=== PATIENT | male | born 1960 | race African-American/Black ===

== ENCOUNTER 2018-01-17 14:16 | Inpatient (IN) | payer OTHER ==
[2018-01-17 15:51] VITALS: BMI 22.8
--- NOTE | 2018-01-17 16:50 | HP ---
CIWA Score - CIWA Score Nausea/Vomitin-Mild Nausea/No Vomiting Muscle Tremors: 3 (Mild visible tremors of hands) Anxiety: 1-Mildly Anxious Agitation: 4-Moderately Restless Paroxysmal Sweats: 3 (Facial sweatness) Orientation: 0-Oriented Tacttile Disturbances: 0-None Auditory Disturbances: 0-None Visual Disturbances: 0-None Headache: 0-None Present CIWA-Ar Total Score: 12 Admission ROS S - HPI Chief Complaint: Here for alcohol withdrawal. Allergies/Adverse Reactions: Allergies Allergy/AdvReac Type Severity Reaction Status Date / Time No Known Drug Allergies Allergy Verified 01/09/15 20:08 VACCINATIONS Allergy Uncoded 01/09/15 16:19 History of Present Illness: Here for alcohol withdrawal. Alcohol use began at age 11. Marijuana use began at age 12. Nicotine use began at age 14. Heroin use began at age 40. Denies hx seizures, blackouts, overdose. Longest length of sobriety in community is 6 months. Hx opiate use disorder. Currently on [facility] MMTP/OTP ([phone]) since 2014. Dose is 60 mg Methadone PO Daily. 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 Exam Limitations: No Limitations - Ebola screening Have you traveled outside of the country in the last 21 days: No Have you had contact with anyone from an Ebola affected area: No Have you been sick,other than usual withdrawal symptoms: No Do you have a fever: No - Review of Systems Constitutional: Chills, Loss of Appetite EENT: reports: Blurred Vision (Needs glasses), Dental Problems (Missing/ chipped. Chews and swallows ok.) Respiratory: reports: No Symptoms reported Cardiac: reports: No Symptoms Reported GI: reports: Blood Streaked Bowels (Hx hemorrhoids.), Nausea : reports: Frequency (2-3x/night nocturia) Musculoskeletal: reports: No Symptoms Reported Integumentary: reports: No Symptoms Reported Neuro: reports: Tremors (r/t withdrawal) Endocrine: reports: No Symptoms Reported Hematology: reports: No Symptoms Reported Psychiatric: reports: Judgement Intact, Mood/Affect Appropiate, Orientated x3, Agitated (Restless), Anxious Patient History - Patient Medical History Hx Anemia: No Hx Asthma: No Hx Chronic Obstructive Pulmonary Disease (COPD): No Hx Cancer: No Hx Cardiac Disorders: No Hx Congestive Heart Failure: No Hx Hypertension: No Hx Hypercholesterolemia: No Hx Pacemaker: No HX Cerebrovascular Accident: No Hx Seizures: No (h/o blackouts - 3 years ago) Hx Dementia: No Hx Diabetes: No Hx Gastrointestinal Disorders: Yes (h/o gastritis - resolved years ago) Hx Liver Disease: No Hx Genitourinary Disorders: No Hx Sexually Transmitted Disorders: No Hx Renal Disease (ESRD): No Hx Thyroid Disease: No Hx Human Immunodeficiency Virus (HIV): No (2017 - ) Hx Hepatitis C: No Hx Depression: No Hx Suicide Attempt: No Hx Bipolar Disorder: No Hx Schizophrenia: No - Patient Surgical History Past Surgical History: Yes Hx Neurologic Surgery: No Hx Cataract Extraction: No Hx Cardiac Surgery: No Hx Lung Surgery: No Hx Breast Surgery: No Hx Breast Biopsy: No Hx Abdominal Surgery: Yes (umbilical hernia repair 1964) Hx Appendectomy: No Hx Cholecystectomy: No Hx Genitourinary Surgery: No Hx Section: No Hx Orthopedic Surgery: No Anesthesia Reaction: No - PPD History Previous Implant?: Yes Implanted On Prior [facility] Admission?: Yes Date: 01/09/15 PPD to be Administered?: Yes - Smoking Cessation Smoking history: Current every day smoker Have you smoked in the past 12 months: Yes Aproximately how many cigarettes per day: 10 Cigars Per Day: 0 Hx Chewing Tobacco Use: No Initiated information on smoking cessation: Yes 'Breaking Loose' booklet given: 01/17/18 - Substance & Tx. History Hx Alcohol Use: Yes Hx Substance Use: Yes Substance Use Type: Alcohol, Heroin, Marijuana Hx Substance Use Treatment: Yes (detox, Currently in a MMTP) - Substances Abused Alcohol Route: Oral Frequency: Daily Amount used: 1/2 pint Age of first use: 11 Date of Last Use: 01/17/18 Marijuana/Hashish Route: Smoking Frequency: Daily Age of first use: 12 Date of Last Use: 01/17/18 Heroin Route: Inhalation Frequency: 1-2 times per week Amount used: 1 bag Age of first use: 40 Date of Last Use: 01/11/18 Marijuana Route: Smoking Frequency: Daily Amount used: $10 Age of first use: 13 Date of Last Use: 01/17/18 Family Disease History - Family Disease History Family Disease History: Diabetes: Mother, Other: Father (alcoholism ) Admission Physical Exam BHS - Vital Signs Vital Signs: Vital Signs - 24 hr 01/17/18 15:49 Temperature 98.3 F Pulse Rate 86 Respiratory 20 Rate Blood Pressure 141/91 - Physical General Appearance: Yes: Mild Distress, Tremorous, Sweating, Anxious HEENTM: Yes: EOMI, Hearing grossly Normal, Normal Voice, CHRISTIANNE, Pharynx Normal Respiratory: Yes: Lungs Clear, Normal Breath Sounds, No Respiratory Distress Neck: Yes: No masses,lesions,Nodules, Supple Breast: Yes: Breast Exam Deferred Cardiology: Yes: Regular Rhythm, Regular Rate, S1, S2 Abdominal: Yes: Non Tender, Flat, Soft, Increased Bowel Sounds Genitourinary: Yes: Within Normal Limits Back: Yes: Normal Inspection Musculoskeletal: Yes: full range of Motion, Gait Steady Extremities: Yes: Normal Capillary Refill, Non-Tender, Tremors (MIld tremors of hands w/ arms elevated) 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 intact, Fully Oriented, Alert, Motor Strength 5/5, Normal Mood/Affect Integumentary: Yes: Normal Color, Dry, Warm Lymphatic: Yes: Within Normal Limits - Diagnostic (1) Methadone maintenance therapy patient Current Visit: Yes Status: Chronic (2) Alcohol dependence with uncomplicated withdrawal Current Visit: Yes Status: Acute (3) Nicotine dependence Current Visit: Yes Status: Chronic Qualifiers: Nicotine product type: cigarettes Substance use status: uncomplicated Qualified Code(s): F17.210 - Nicotine dependence, cigarettes, uncomplicated (4) Marijuana dependence Current Visit: Yes Status: Chronic (5) Poor dentition Current Visit: Yes Status: Chronic (6) Frequency of urination Current Visit: Yes Status: Chronic Cleared for Admission [facility] - Detox or Rehab [facility] Level of Care: Medically Managed Detox Regimen/Protocol: Librium [facility] Breath Alcohol Content Breath Alcohol Content: 0.044 Urine Drug Screen - Results Drug Screen Negative: No Urine Drug Screen Results: THC-Marijuana, OPI-Opiates, MTD-Methadone, FEN- Fentanyl
[2018-01-17] MEDS ORDERED: MAG HYDROX/AL HYDROX/SIMETH 30 ML UNIT-DOSE CUP PO PRN (17:16)
[2018-01-17] MEDS ORDERED: P-EPHED 60MG/TRIPROLIDI 2.5MG TABLET PO PRN (17:16)
[2018-01-17] MEDS ORDERED: MAGNESIUM HYDROX 2400MG/30ML ORAL SUSPENSION 30 ML CUP PO PRN (17:16)
[2018-01-17] MEDS ORDERED: guaiFENesin/D-METHORPHAN HB 10 ML UNIT-DOSE CUPS PO PRN (17:16)
[2018-01-17] MEDS ORDERED: ACETAMINOPHEN 325 MG TABLET (FP) PO PRN (17:16)
[2018-01-17] MEDS ORDERED: IBUPROFEN 400 MG TABLET (FP) PO PRN (17:16)
[2018-01-17] MEDS ORDERED: LOPERAMIDE HCL 2 MG CAPSULE PO PRN (17:16)
[2018-01-17] MEDS ORDERED: MAGNESIUM CITRATE 300 ML BOTTLE PO PRN (17:16)
[2018-01-17] MEDS ORDERED: MENTHOL/PHENOL 1 EACH UD MM PRN (17:16)
[2018-01-17] MEDS ORDERED: chlordiazePOXIDE HCL 25 MG CAPSULE PO PRN (17:16)
[2018-01-17] MEDS ORDERED: BENZOCAINE 20 % GEL TUBE MM PRN ×2 (17:25→18:39)
[2018-01-17] MEDS ORDERED: chlordiazePOXIDE HCL 25 MG CAPSULE PO ONE (18:45)
[2018-01-17] MEDS: NICOTINE POLACRILEX 2 MG GUM BC PRN (19:42)
[2018-01-17] MEDS: chlordiazePOXIDE HCL 25 MG CAPSULE PO SCH (22:29)
[2018-01-17] MEDS: THIAMINE HCL 100 MG TABLET (FP) PO SCH (22:29)
[2018-01-17] MEDS: MELATONIN 5 MG TABLETS PO PRN (22:30)
[2018-01-18 00:29] LABS: URINE APPEARANCE CLEAR; URINE BILIRUBIN NEGATIVE (<2.0 mg/dL); URINE COLOR DKYELLOW; URINE GLUCOSE (UA) NEGATIVE (NEGATIVE); URINE KETONE NEGATIVE (NEGATIVE); URINE LEUK ESTERASE TRACE (NEGATIVE); URINE NITRITE NEGATIVE (NEGATIVE); URINE PROTEIN NEGATIVE (NEGATIVE); URINE UROBILINOGEN NEGATIVE mg/dL (0.2-1.0)
[2018-01-18 00:39] LABS: URINE BACTERIA RARE /hpf (NONE SEEN); URINE MUCUS RARE
[2018-01-18] MEDS: chlordiazePOXIDE HCL 25 MG CAPSULE PO SCH ×4 (05:30→22:41)
[2018-01-18] MEDS ORDERED: METHADONE HCL 10 MG TABLET PO SCH (09:00)
[2018-01-18] MEDS ORDERED: METHADONE HCL 10 MG TABLET ONE (09:11)
[2018-01-18] MEDS ORDERED: METHADONE HCL 40 MG DISPERSABLE TABLET ONE (09:11)
[2018-01-18] MEDS: METHADONE 40 MG, METHADONE 20 MG PO SCH (09:13)
[2018-01-18] MEDS ORDERED: BENZOCAINE/MENTH/CETYLPYRD CL 1 EACH LOZENGE MM PRN (09:57)
[2018-01-18] MEDS ORDERED: AZITHROMYCIN 250 MG TABLET PO ONE (09:58)
[2018-01-18] MEDS: NICOTINE 14 MG/24 HOURS TOPICAL PATCH TD SCH (10:39)
[2018-01-18] MEDS: PRENATAL VITAMINS W/ FOLIC ACID TABLET (FP) PO SCH (10:39)
--- NOTE | 2018-01-18 11:28 | EKG ---
Test Reason : Blood Pressure : / mmHG Vent. Rate : 069 BPM Atrial Rate : 069 BPM P-R Int : 232 ms QRS Dur : 090 ms QT Int : 420 ms P-R-T Axes : 055 062 062 degrees QTc Int : 450 ms SINUS RHYTHM WITH 1ST DEGREE A-V BLOCK OTHERWISE NORMAL ECG NO PREVIOUS ECGS AVAILABLE Confirmed by WENCESLAO MCLEOD, HUMA ([id number]) on 01/18/2018 11:28:37 AM Referred By: Confirmed By:HUMA BILLY MD
--- NOTE | 2018-01-18 14:04 | PN ---
[facility] CIWA - CIWA Score Nausea/Vomitin Muscle Tremors: 4-Moderate,w/Arms Extend Anxiety: 4-Mod. Anxious/Guarded Agitation: 4-Moderately Restless Paroxysmal Sweats: 3 Orientation: 0-Oriented Tacttile Disturbances: 0-None Auditory Disturbances: 0-None Visual Disturbances: 0-None Headache: 0-None Present CIWA-Ar Total Score: 17 BHS Progress Note (SOAP) Subjective: Tremor, chills, sweating, interrupted sleep; patient c/o sore throat since this morning in which it hurts to swallow. Patient stated he took oragel without any relief. Objective: 01/18/18 14:00 Last Vital Signs Temp Pulse Resp BP Pulse Ox 99.2 F 79 18 113/83 01/18/18 09:39 01/18/18 09:39 01/18/18 09:39 01/18/18 09:39 PE: Throat: mouth with moist mucous membrane, moderate pharyngeal erythema without any exudates Laboratory Tests 01/17/18 22:57 Urine Color Dkyellow Urine Appearance Clear Urine pH 5.0 Ur Specific [place] 1.020 Urine Protein Negative Urine Glucose (UA) Negative Urine Ketones Negative Urine Blood 2+ H Urine Nitrite Negative Urine Bilirubin Negative Urine Urobilinogen Negative Ur Leukocyte Esterase Trace Urine WBC (Auto) 1 Urine RBC (Auto) 1 Urine Bacteria Rare Urine Mucus Rare abnormal UA noted; CBC, CMP, RPR in progress Assessment: 01/18/18 14:02 Withdrawal symptoms Noted with abnormal UA and acute pharyngitis Plan: Continue detox Abnormal UA: encouraged PO water intake, repeat UA Acute pharyngitis: cepacol lozenges prn, Z Alessandro, encouraged robitussin dm prn, encouraged PO water intake
[2018-01-18 14:14] LABS: HEMATOCRIT 41.7 % (35.4-49); HEMOGLOBIN 13.3 GM/dL (11.7-16.9); MCH 28.9 pg (25.7-33.7); MCHC 31.9 g/dl (32.0-35.9); MEAN CELL VOLUME 90.6 fl (80-96); MEAN PLT VOLUME 9.1 fl (7.5-11.1); PLATELET COUNT 188 K/MM3 (134-434); RBC 4.61 M/mm3 (4.00-5.60); RDW 13.1 % (11.9-15.9); WHITE BLOOD COUNT 10.5 K/mm3 (4.0-10.0)
[2018-01-18 14:51] LABS: ALBUMIN 3.6 g/dl (3.4-5.0); ALK PHOS 80 U/L (45-117); ANION GAP 5 MMOL/L (8-16); BILIRUBIN,TOTAL 0.5 mg/dL (0.2-1); BLOOD UREA NITROGEN 11 mg/dL (7-18); CALCIUM 8.8 mg/dL (8.5-10.1); CHLORIDE 105 mmol/L (98-107); CO2 31 mmol/L (21-32); CREATININE 1.1 mg/dL (0.55-1.3); GLUCOSE,RANDOM 80 mg/dL (74-106); POTASSIUM 3.9 mmol/L (3.5-5.1); SGOT/AST 16 U/L (15-37); SGPT/ALT 18 U/L (13-61); SODIUM 141 mmol/L (136-145); TOT PROT 6.6 g/dl (6.4-8.2)
[2018-01-18] MEDS: NICOTINE POLACRILEX 2 MG GUM BC PRN (15:36)
[2018-01-18] MEDS: MELATONIN 5 MG TABLETS PO PRN (22:41)
[2018-01-18] MEDS: THIAMINE HCL 100 MG TABLET (FP) PO SCH (22:41)
[2018-01-19] MEDS ORDERED: METHADONE HCL 10 MG TABLET ONE (02:14)
[2018-01-19] MEDS ORDERED: METHADONE HCL 40 MG DISPERSABLE TABLET ONE (02:14)
[2018-01-19] MEDS: chlordiazePOXIDE HCL 25 MG CAPSULE PO SCH ×3 (05:30→17:30)
[2018-01-19] MEDS: METHADONE 40 MG, METHADONE 20 MG PO SCH (05:30)
[2018-01-19] MEDS: NICOTINE POLACRILEX 2 MG GUM BC PRN (05:32)
[2018-01-19] MEDS: AZITHROMYCIN 250 MG TABLET PO SCH (10:07)
[2018-01-19] MEDS: PRENATAL VITAMINS W/ FOLIC ACID TABLET (FP) PO SCH (10:07)
[2018-01-19] MEDS: NICOTINE 14 MG/24 HOURS TOPICAL PATCH TD SCH (10:07)
--- NOTE | 2018-01-19 11:49 | PN ---
[facility] CIWA - CIWA Score Nausea/Vomitin-Mild Nausea/No Vomiting Muscle Tremors: 3 Anxiety: 4-Mod. Anxious/Guarded Agitation: 3 Paroxysmal Sweats: 3 Orientation: 0-Oriented Tacttile Disturbances: 0-None Auditory Disturbances: 0-None Visual Disturbances: 0-None Headache: 0-None Present CIWA-Ar Total Score: 14 S Progress Note (SOAP) Subjective: Sweating, muscle cramps, interrupted sleep Objective: 01/19/18 11:50 Last Vital Signs Temp Pulse Resp BP Pulse Ox 98.4 F 83 18 114/74 01/19/18 09:05 01/19/18 09:05 01/19/18 09:05 01/19/18 09:05 Laboratory Tests 01/17/18 01/18/18 01/18/18 22:57 07:15 07:15 WBC 10.5 H RBC 4.61 Hgb 13.3 Hct 41.7 MCV 90.6 MCH 28.9 MCHC 31.9 L RDW 13.1 Plt Count 188 MPV 9.1 Sodium 141 Potassium 3.9 Chloride 105 Carbon Dioxide 31 Anion Gap 5 L BUN 11 Creatinine 1.1 Creat Clearance w eGFR > 60 Random Glucose 80 Calcium 8.8 Total Bilirubin 0.5 AST 16 ALT 18 Alkaline Phosphatase 80 Total Protein 6.6 Albumin 3.6 Urine Color Dkyellow Urine Appearance Clear Urine pH 5.0 Ur Specific [place] 1.020 Urine Protein Negative Urine Glucose (UA) Negative Urine Ketones Negative Urine Blood 2+ H Urine Nitrite Negative Urine Bilirubin Negative Urine Urobilinogen Negative Ur Leukocyte Esterase Trace Urine WBC (Auto) 1 Urine RBC (Auto) 1 Urine Bacteria Rare Urine Mucus Rare RPR Titer HIV 1&2 Antibody Screen HIV P24 Antigen 01/18/18 01/18/18 07:15 07:15 WBC RBC Hgb Hct MCV MCH MCHC RDW Plt Count MPV Sodium Potassium Chloride Carbon Dioxide Anion Gap BUN Creatinine Creat Clearance w eGFR Random Glucose Calcium Total Bilirubin AST ALT Alkaline Phosphatase Total Protein Albumin Urine Color Urine Appearance Urine pH Ur Specific [place] Urine Protein Urine Glucose (UA) Urine Ketones Urine Blood Urine Nitrite Urine Bilirubin Urine Urobilinogen Ur Leukocyte Esterase Urine WBC (Auto) Urine RBC (Auto) Urine Bacteria Urine Mucus RPR Titer Nonreactive HIV 1&2 Antibody Screen Negative HIV P24 Antigen Negative Labs reviewed: abnormal UA Assessment: 01/19/18 11:51 Withdrawal symptoms Abnormal UA noted Plan: Continue detox Abnormal UA: encouraged PO water intake, repeat UA
[2018-01-19 17:56] LABS: URINE APPEARANCE CLEAR; URINE BILIRUBIN NEGATIVE (<2.0 mg/dL); URINE COLOR STRAW; URINE GLUCOSE (UA) NEGATIVE (NEGATIVE); URINE KETONE NEGATIVE (NEGATIVE); URINE LEUK ESTERASE NEGATIVE (NEGATIVE); URINE NITRITE NEGATIVE (NEGATIVE); URINE PROTEIN NEGATIVE (NEGATIVE); URINE UROBILINOGEN NEGATIVE mg/dL (0.2-1.0)
[2018-01-19 18:14] LABS: URINE MUCUS RARE
[2018-01-19] MEDS: THIAMINE HCL 100 MG TABLET (FP) PO SCH (22:17)
[2018-01-19] MEDS: chlordiazePOXIDE 5 MG CAPSULE PO SCH (22:18)
[2018-01-19] MEDS: MELATONIN 5 MG TABLETS PO PRN (22:20)
[2018-01-19] MEDS: CYCLOBENZAPRINE HCL 5 MG TABLET PO PRN (22:20)
[2018-01-20] MEDS ORDERED: METHADONE HCL 10 MG TABLET ONE (04:43)
[2018-01-20] MEDS ORDERED: METHADONE HCL 40 MG DISPERSABLE TABLET ONE (04:43)
[2018-01-20] MEDS: METHADONE 40 MG, METHADONE 20 MG PO SCH (05:09)
[2018-01-20] MEDS: chlordiazePOXIDE 5 MG CAPSULE PO SCH ×3 (05:09→17:23)
[2018-01-20] MEDS: PRENATAL VITAMINS W/ FOLIC ACID TABLET (FP) PO SCH (10:08)
[2018-01-20] MEDS: AZITHROMYCIN 250 MG TABLET PO SCH (10:08)
[2018-01-20] MEDS: NICOTINE 14 MG/24 HOURS TOPICAL PATCH TD SCH (10:31)
--- NOTE | 2018-01-20 12:55 | PN ---
BHS Progress Note (SOAP) Subjective: Sweating, anxious Objective: 01/20/18 12:51 Last Vital Signs Temp Pulse Resp BP Pulse Ox 97.7 F 71 18 144/81 01/20/18 09:41 01/20/18 09:41 01/20/18 09:41 01/20/18 09:41 Laboratory Tests 01/17/18 01/18/18 01/18/18 22:57 07:15 07:15 WBC 10.5 H RBC 4.61 Hgb 13.3 Hct 41.7 MCV 90.6 MCH 28.9 MCHC 31.9 L RDW 13.1 Plt Count 188 MPV 9.1 Sodium 141 Potassium 3.9 Chloride 105 Carbon Dioxide 31 Anion Gap 5 L BUN 11 Creatinine 1.1 Creat Clearance w eGFR > 60 Random Glucose 80 Calcium 8.8 Total Bilirubin 0.5 AST 16 ALT 18 Alkaline Phosphatase 80 Total Protein 6.6 Albumin 3.6 Urine Color Dkyellow Urine Appearance Clear Urine pH 5.0 Ur Specific [place] 1.020 Urine Protein Negative Urine Glucose (UA) Negative Urine Ketones Negative Urine Blood 2+ H Urine Nitrite Negative Urine Bilirubin Negative Urine Urobilinogen Negative Ur Leukocyte Esterase Trace Urine WBC (Auto) 1 Urine RBC (Auto) 1 Urine Bacteria Rare Urine Mucus Rare RPR Titer HIV 1&2 Antibody Screen HIV P24 Antigen 01/18/18 01/18/18 01/19/18 07:15 07:15 15:11 WBC RBC Hgb Hct MCV MCH MCHC RDW Plt Count MPV Sodium Potassium Chloride Carbon Dioxide Anion Gap BUN Creatinine Creat Clearance w eGFR Random Glucose Calcium Total Bilirubin AST ALT Alkaline Phosphatase Total Protein Albumin Urine Color Straw Urine Appearance Clear Urine pH 6.0 Ur Specific [place] 1.005 L Urine Protein Negative Urine Glucose (UA) Negative Urine Ketones Negative Urine Blood 1+ H Urine Nitrite Negative Urine Bilirubin Negative Urine Urobilinogen Negative Ur Leukocyte Esterase Negative Urine WBC (Auto) None Urine RBC (Auto) 2 Urine Bacteria Urine Mucus Rare RPR Titer Nonreactive HIV 1&2 Antibody Screen Negative HIV P24 Antigen Negative Labs reviewed: microscopic hematuria (improving from 2+ to 1+), encouraged to drink more water and to see his PCP within 1 week for further evaluation Assessment: 01/20/18 12:55 Withdrawal symptoms Noted with elevated blood pressure and microscopic hematuria Plan: Continue detox Patient is for discharge tomorrow at 8am Elevated blood pressure: patient denies htn; most likely due to anxiety, clonidine 0.1mg q8hr prn Microscopic hematuria: encouraged to drink more water and to see PCP within 1 week for further evaluation
[2018-01-20] MEDS ORDERED: cloNIDine HCL 0.1 MG TABLET PO PRN (13:10)
[2018-01-20] MEDS: CYCLOBENZAPRINE HCL 5 MG TABLET PO PRN (17:25)
[2018-01-20] MEDS: NICOTINE POLACRILEX 2 MG GUM BC PRN (17:26)
[2018-01-20] MEDS: chlordiazePOXIDE HCL 10 MG CAPSULE PO SCH (22:19)
[2018-01-20] MEDS: THIAMINE HCL 100 MG TABLET (FP) PO SCH (22:19)
[2018-01-20] MEDS: MELATONIN 5 MG TABLETS PO PRN (22:19)
[2018-01-21] MEDS ORDERED: METHADONE HCL 40 MG DISPERSABLE TABLET ONE (04:18)
[2018-01-21] MEDS ORDERED: METHADONE HCL 10 MG TABLET ONE (04:18)
[2018-01-21] MEDS: chlordiazePOXIDE HCL 10 MG CAPSULE PO SCH (05:44)
[2018-01-21] MEDS: METHADONE 40 MG, METHADONE 20 MG PO SCH (05:44)
[2018-01-21 06:20] VITALS: BP 118/78; PULSE 77; TEMP 96.9
--- NOTE | 2018-01-21 09:15 | DS ---
[facility] Detox Discharge Summary Admission Date: 01/17/18 Discharge Date: 01/21/18 - History Present History: Alcohol Dependence, Opioid Dependence, MMTP Additional Comments: Patient medically stable. Follow up with primary care provider in 1 -2 weeks. Pertinent Past History: Vital Signs Temperature 96.9 F L 01/21/18 06:20 Pulse Rate 77 01/21/18 06:20 Respiratory Rate 16 01/21/18 06:20 Blood Pressure 118/78 01/21/18 06:20 O2 Sat by Pulse Oximetry (%) Laboratory Last Values WBC 10.5 K/mm3 (4.0-10.0) H 01/18/18 07:15 RBC 4.61 M/mm3 (4.00-5.60) 01/18/18 07:15 Hgb 13.3 GM/dL (11.7-16.9) 01/18/18 07:15 Hct 41.7 % (35.4-49) 01/18/18 07:15 MCV 90.6 fl (80-96) 01/18/18 07:15 MCH 28.9 pg (25.7-33.7) 01/18/18 07:15 MCHC 31.9 g/dl (32.0-35.9) L 01/18/18 07:15 RDW 13.1 % (11.9-15.9) 01/18/18 07:15 Plt Count 188 K/MM3 (134-434) 01/18/18 07:15 MPV 9.1 fl (7.5-11.1) 01/18/18 07:15 Sodium 141 mmol/L (136-145) 01/18/18 07:15 Potassium 3.9 mmol/L (3.5-5.1) 01/18/18 07:15 Chloride 105 mmol/L (98-107) 01/18/18 07:15 Carbon Dioxide 31 mmol/L (21-32) 01/18/18 07:15 Anion Gap 5 MMOL/L (8-16) L 01/18/18 07:15 BUN 11 mg/dL (7-18) 01/18/18 07:15 Creatinine 1.1 mg/dL (0.55-1.3) 01/18/18 07:15 Creat Clearance w eGFR > 60 (>60) 01/18/18 07:15 Random Glucose 80 mg/dL (74-106) 01/18/18 07:15 Calcium 8.8 mg/dL (8.5-10.1) 01/18/18 07:15 Total Bilirubin 0.5 mg/dL (0.2-1) 01/18/18 07:15 AST 16 U/L (15-37) 01/18/18 07:15 ALT 18 U/L (13-61) 01/18/18 07:15 Alkaline Phosphatase 80 U/L (45-117) 01/18/18 07:15 Total Protein 6.6 g/dl (6.4-8.2) 01/18/18 07:15 Albumin 3.6 g/dl (3.4-5.0) 01/18/18 07:15 Urine Color Straw 01/19/18 15:11 Urine Appearance Clear 01/19/18 15:11 Urine pH 6.0 (5.0-8.0) 01/19/18 15:11 Ur Specific [place] 1.005 (1.010-1.035) L 01/19/18 15:11 Urine Protein Negative (NEGATIVE) 01/19/18 15:11 Urine Glucose (UA) Negative (NEGATIVE) 01/19/18 15:11 Urine Ketones Negative (NEGATIVE) 01/19/18 15:11 Urine Blood 1+ (NEGATIVE) H 01/19/18 15:11 Urine Nitrite Negative (NEGATIVE) 01/19/18 15:11 Urine Bilirubin Negative (<2.0 mg/dL) 01/19/18 15:11 Urine Urobilinogen Negative mg/dL (0.2-1.0) 01/19/18 15:11 Ur Leukocyte Esterase Negative (NEGATIVE) 01/19/18 15:11 Urine WBC (Auto) None /hpf (3-5) 01/19/18 15:11 Urine RBC (Auto) 2 /hpf (0-3) 01/19/18 15:11 Urine Bacteria Rare /hpf (NONE SEEN) 01/17/18 22:57 Urine Mucus Rare 01/19/18 15:11 RPR Titer Nonreactive (NONREACTIVE) 01/18/18 07:15 HIV 1&2 Antibody Screen Negative 01/18/18 07:15 HIV P24 Antigen Negative 01/18/18 07:15 - Physical Exam Results Vital Signs: Vital Signs Temperature 96.9 F L 10/27/18 06:20 Pulse Rate 77 01/21/18 06:20 Respiratory Rate 16 01/21/18 06:20 Blood Pressure 118/78 01/21/18 06:20 O2 Sat by Pulse Oximetry (%) - Treatment Hospital Course: Detox Protocol Followed, Detoxed Safely, Responded well, Discharged Condition Good, Rehab Referral Accepted Patient has Accepted a Rehab Referral to: [facility] - Diagnosis (1) Alcohol dependence with uncomplicated withdrawal Status: Acute (2) Marijuana dependence Status: Chronic (3) Nicotine dependence Status: Chronic Qualifiers: Nicotine product type: cigarettes Substance use status: uncomplicated Qualified Code(s): F17.210 - Nicotine dependence, cigarettes, uncomplicated (4) Methadone maintenance therapy patient Status: Chronic - AMA Did Patient Leave Against Medical Advice: No
== END 2018-01-21 08:48 | disposition home or self-care (01) | DRG 773 ==
LOC: YASAS 14:16 → Y3N 18:14
PROC: HZ2ZZZZ Detoxification Services for Substance Abuse Treatment (ICD-10-PCS; principal; 2018-01-17)
DX: F10.230 Alcohol dependence with withdrawal, uncomplicated (principal); F12.20 Cannabis dependence, uncomplicated; F11.20 Opioid dependence, uncomplicated; F17.210 Nicotine dependence, cigarettes, uncomplicated; J02.9 Acute pharyngitis, unspecified; R35.0 Frequency of micturition; R31.29 Other microscopic hematuria; K08.9 Disorder of teeth and supporting structures, unspecified; R03.0 Elevated blood-pressure reading, without diagnosis of hypertension; Z87.19 Personal history of other diseases of the digestive system
CPT/HCPCS: 36415; 80053; 81003; 81015; 85027; 86593; 87389; 93005; 93010

== ENCOUNTER 2020-02-11 15:52 | Inpatient (IN) | payer OTHER ==
[2020-02-11 17:15] VITALS: BMI 22.4
[2020-02-11] MEDS ORDERED: MAGNESIUM HYDROX 2400MG/30ML ORAL SUSPENSION 30 ML CUP PO PRN (17:56)
[2020-02-11] MEDS ORDERED: MAGNESIUM CITRATE 300 ML BOTTLE PO PRN (17:56)
[2020-02-11] MEDS ORDERED: ONDANSETRON *ODT* 4 MG TABLET SL PRN (17:56)
[2020-02-11] MEDS ORDERED: NICOTINE POLACRILEX 2 MG GUM BUC PRN (17:56)
[2020-02-11] MEDS ORDERED: METHOCARBAMOL 500 MG TABLET PO PRN (17:56)
[2020-02-11] MEDS ORDERED: ACETAMINOPHEN 325 MG TABLET (FP) PO PRN ×2 (17:56)
[2020-02-11] MEDS ORDERED: MAG HYDROX/AL HYDROX/SIMETH 30 ML UNIT-DOSE CUP PO PRN (17:56)
[2020-02-11] MEDS ORDERED: IBUPROFEN 400 MG TABLET (FP) PO PRN (17:56)
[2020-02-11] MEDS ORDERED: MENTHOL/PHENOL 1 EACH UD MM PRN (17:56)
[2020-02-11] MEDS ORDERED: BISMUTH SUBSALICYLATE 524 MG/30 ML UD PO PRN (17:56)
[2020-02-11] MEDS ORDERED: chlordiazePOXIDE HCL 25 MG CAPSULE PO PRN (18:08)
[2020-02-11] MEDS ORDERED: chlordiazePOXIDE HCL 25 MG CAPSULE PO ONE (19:45)
[2020-02-11] MEDS: NICOTINE 7 MG/24 HOURS TOPICAL PATCH TD SCH (20:17)
[2020-02-11] MEDS: hydrOXYzine PAMOATE 25 MG CAPSULE (FP) PO SCH ×2 (20:17→22:06)
[2020-02-11] MEDS: MELATONIN 5 MG TABLETS PO SCH (22:06)
[2020-02-11] MEDS: chlordiazePOXIDE HCL 25 MG CAPSULE PO SCH (22:06)
[2020-02-11] MEDS: THIAMINE HCL 100 MG TABLET (FP) PO SCH (22:06)
[2020-02-12] MEDS: chlordiazePOXIDE HCL 25 MG CAPSULE PO SCH ×4 (05:36→22:20)
[2020-02-12] MEDS: hydrOXYzine PAMOATE 25 MG CAPSULE (FP) PO SCH ×5 (06:07→22:20)
[2020-02-12 09:00] LABS: HEMATOCRIT 40.8 % (35.4-49); HEMOGLOBIN 13.6 GM/dL (11.7-16.9); MCH 29.9 pg (25.7-33.7); MCHC 33.3 g/dl (32.0-35.9); MEAN CELL VOLUME 89.7 fl (80-96); MEAN PLT VOLUME 8.8 fl (7.5-11.1); PLATELET COUNT 197 K/MM3 (134-434); RBC 4.55 M/mm3 (4.00-5.60); RDW 12.5 % (11.9-15.9); WHITE BLOOD COUNT 11.9 K/mm3 (4.0-10.0)
[2020-02-12 09:09] LABS: CALCIUM 8.9 mg/dL (8.5-10.1)
[2020-02-12 09:10] LABS: ALBUMIN 3.7 g/dl (3.4-5.0); BLOOD UREA NITROGEN 13.6 mg/dL (7-18)
[2020-02-12 09:13] LABS: CREATININE 1.1 mg/dL (0.55-1.3)
[2020-02-12 09:14] LABS: BILIRUBIN,TOTAL 0.9 mg/dL (0.2-1)
[2020-02-12 09:15] LABS: TOT PROT 6.7 g/dl (6.4-8.2)
[2020-02-12 10:04] LABS: HIV INTERPRETATION NEGATIVE (NEGATIVE)
[2020-02-12] MEDS: PRENATAL VITAMINS W/ FOLIC ACID TABLET (FP) PO SCH (10:04)
[2020-02-12] MEDS: NICOTINE 7 MG/24 HOURS TOPICAL PATCH TD SCH (10:05)
[2020-02-12] MEDS ORDERED: METHADONE HCL 40 MG DISPERSABLE TABLET PO ONE (10:30)
[2020-02-12] MEDS: THIAMINE HCL 100 MG TABLET (FP) PO SCH (22:20)
[2020-02-12] MEDS: MELATONIN 5 MG TABLETS PO SCH (22:21)
[2020-02-13] MEDS: chlordiazePOXIDE HCL 25 MG CAPSULE PO SCH ×4 (06:22→22:17)
[2020-02-13] MEDS: hydrOXYzine PAMOATE 25 MG CAPSULE (FP) PO SCH ×5 (06:24→22:17)
[2020-02-13] MEDS: METHADONE HCL 40 MG DISPERSABLE TABLET PO SCH (06:24)
[2020-02-13] MEDS: PRENATAL VITAMINS W/ FOLIC ACID TABLET (FP) PO SCH (10:02)
[2020-02-13] MEDS: NICOTINE 7 MG/24 HOURS TOPICAL PATCH TD SCH (10:04)
[2020-02-13] MEDS: THIAMINE HCL 100 MG TABLET (FP) PO SCH (22:17)
[2020-02-13] MEDS: MELATONIN 5 MG TABLETS PO SCH (22:17)
[2020-02-14] MEDS ORDERED: chlordiazePOXIDE HCL 10 MG CAPSULE PO PRN
[2020-02-14] MEDS: chlordiazePOXIDE HCL 10 MG CAPSULE PO SCH ×4 (05:26→22:31)
[2020-02-14] MEDS: METHADONE HCL 40 MG DISPERSABLE TABLET PO SCH (05:26)
[2020-02-14] MEDS: hydrOXYzine PAMOATE 25 MG CAPSULE (FP) PO SCH ×5 (05:27→22:31)
[2020-02-14] MEDS: NICOTINE 7 MG/24 HOURS TOPICAL PATCH TD SCH (10:22)
[2020-02-14] MEDS: PRENATAL VITAMINS W/ FOLIC ACID TABLET (FP) PO SCH (10:22)
[2020-02-14] MEDS: THIAMINE HCL 100 MG TABLET (FP) PO SCH (22:31)
[2020-02-14] MEDS: MELATONIN 5 MG TABLETS PO SCH (22:32)
[2020-02-15] MEDS ORDERED: chlordiazePOXIDE HCL 10 MG CAPSULE PO SCH (05:00)
[2020-02-15] MEDS: hydrOXYzine PAMOATE 25 MG CAPSULE (FP) PO SCH ×2 (05:24→10:02)
[2020-02-15] MEDS: METHADONE HCL 40 MG DISPERSABLE TABLET PO SCH (05:24)
[2020-02-15 06:20] VITALS: TEMP 97.3
[2020-02-15 08:50] VITALS: BP 113/77; PULSE 100
[2020-02-15] MEDS: PRENATAL VITAMINS W/ FOLIC ACID TABLET (FP) PO SCH (10:02)
[2020-02-15] MEDS: NICOTINE 7 MG/24 HOURS TOPICAL PATCH TD SCH (10:02)
[2020-02-16] MEDS ORDERED: chlordiazePOXIDE HCL 10 MG CAPSULE PO ONE (05:00)
== END 2020-02-15 10:38 | disposition home or self-care (01) | DRG 773 ==
LOC: YASAS 15:52 → Y3N 19:31
PROVIDERS: ADMIT Allergy & Immunology; ATTEND Allergy & Immunology
PROC: HZ2ZZZZ Detoxification Services for Substance Abuse Treatment (ICD-10-PCS; principal; 2020-02-11)
DX: F10.230 Alcohol dependence with withdrawal, uncomplicated (principal); F11.20 Opioid dependence, uncomplicated; F12.20 Cannabis dependence, uncomplicated; F17.210 Nicotine dependence, cigarettes, uncomplicated; K08.89 Other specified disorders of teeth and supporting structures; M54.5 Low back pain; G89.29 Other chronic pain; R07.0 Pain in throat; R07.89 Other chest pain; H92.01 Otalgia, right ear; Z86.69 Personal history of other diseases of the nervous system and sense organs; Z87.19 Personal history of other diseases of the digestive system; Z88.7 Allergy status to serum and vaccine
CPT/HCPCS: 36415; 80053; 85027; 86780; 87389; 93005; 93010; C9803; U0003

== ENCOUNTER 2021-01-30 17:03 | Inpatient (IN) | payer OTHER ==
[2021-01-30 20:31] VITALS: BMI 22.6
[2021-01-30] MEDS ORDERED: NICOTINE POLACRILEX 2 MG GUM BUC PRN (22:06)
[2021-01-30] MEDS ORDERED: ACETAMINOPHEN 325 MG TABLET (FP) PO PRN (22:06)
[2021-01-30] MEDS ORDERED: MENTHOL/PHENOL 1 EACH UD MM PRN (22:06)
[2021-01-30] MEDS ORDERED: MAGNESIUM HYDROX 2400MG/30ML ORAL SUSPENSION 30 ML CUP PO PRN (22:06)
[2021-01-30] MEDS ORDERED: ONDANSETRON *ODT* 4 MG TABLET SL PRN (22:06)
[2021-01-30] MEDS ORDERED: MAGNESIUM CITRATE 300 ML BOTTLE PO PRN (22:06)
[2021-01-30] MEDS ORDERED: MAG HYDROX/AL HYDROX/SIMETH 30 ML UNIT-DOSE CUP PO PRN (22:06)
[2021-01-30] MEDS ORDERED: BISMUTH SUBSALICYLATE 524 MG/30 ML PO PRN (22:06)
[2021-01-30] MEDS ORDERED: methaDONE HCL 10 MG TABLET (FOR DETOX USE ONLY) PO ONE (22:11)
[2021-01-30] MEDS ORDERED: diazePAM 5 MG TABLET PO PRN (22:11)
[2021-01-31] MEDS: diazePAM 5 MG TABLET PO SCH ×5 (00:08→22:26)
[2021-01-31] MEDS: cloNIDine HCL 0.1 MG TABLET PO PRN ×2 (00:10→16:42)
[2021-01-31] MEDS: NICOTINE 10 MG CARTRIDGE (INHALER) IH PRN (06:06)
[2021-01-31] MEDS: METHOCARBAMOL 500 MG TABLET PO PRN ×3 (07:45→22:28)
[2021-01-31] MEDS ORDERED: methaDONE HCL 10 MG TABLET (FOR DETOX USE ONLY) ONE (09:50)
[2021-01-31] MEDS: PRENATAL VITAMINS W/ FOLIC ACID TABLET (FP) PO SCH (12:44)
[2021-01-31] MEDS: MELATONIN 5 MG TABLETS PO SCH (22:24)
[2021-01-31] MEDS: THIAMINE HCL 100 MG TABLET (FP) PO SCH (22:24)
[2021-02-01] MEDS: diazePAM 5 MG TABLET PO SCH ×3 (06:11→21:49)
[2021-02-01] MEDS: ACETAMINOPHEN 325 MG TABLET (FP) PO PRN (06:26)
[2021-02-01] MEDS: IBUPROFEN 400 MG TABLET (FP) PO PRN (08:59)
[2021-02-01] MEDS: METHOCARBAMOL 500 MG TABLET PO PRN (08:59)
[2021-02-01] MEDS: PRENATAL VITAMINS W/ FOLIC ACID TABLET (FP) PO SCH (09:02)
[2021-02-01] MEDS ORDERED: methaDONE HCL 10 MG TABLET (FOR DETOX USE ONLY) PO ONE (10:00)
[2021-02-01] MEDS: cloNIDine HCL 0.1 MG TABLET PO PRN ×2 (13:40→18:12)
[2021-02-01] MEDS: amLODIPine BESYLATE 5 MG TABLET (FP) PO SCH (15:25)
[2021-02-01] MEDS: NICOTINE 10 MG CARTRIDGE (INHALER) IH PRN (18:59)
[2021-02-01] MEDS: THIAMINE HCL 100 MG TABLET (FP) PO SCH (21:49)
[2021-02-01] MEDS: MELATONIN 5 MG TABLETS PO SCH (21:50)
[2021-02-02] MEDS: diazePAM 5 MG TABLET PO SCH ×2 (06:09→17:09)
[2021-02-02] MEDS: ACETAMINOPHEN 325 MG TABLET (FP) PO PRN (06:21)
[2021-02-02] MEDS: IBUPROFEN 400 MG TABLET (FP) PO PRN (08:46)
[2021-02-02] MEDS: METHOCARBAMOL 500 MG TABLET PO PRN (08:46)
[2021-02-02] MEDS ORDERED: methaDONE HCL 10 MG TABLET (FOR DETOX USE ONLY) ONE (09:23)
[2021-02-02] MEDS ORDERED: METOPROLOL TARTRATE 25 MG TABLET (FP) PO SCH (10:30)
[2021-02-02] MEDS: amLODIPine BESYLATE 5 MG TABLET (FP) PO SCH (11:06)
[2021-02-02] MEDS: PRENATAL VITAMINS W/ FOLIC ACID TABLET (FP) PO SCH (11:17)
[2021-02-02] MEDS: METOPROLOL TARTRATE 25 MG TABLET (FP) PO SCH (11:59)
[2021-02-02] MEDS: MELATONIN 5 MG TABLETS PO SCH (22:27)
[2021-02-02] MEDS: THIAMINE HCL 100 MG TABLET (FP) PO SCH (22:27)
[2021-02-02] MEDS: NICOTINE 10 MG CARTRIDGE (INHALER) IH PRN (22:27)
[2021-02-03] MEDS: METHOCARBAMOL 500 MG TABLET PO PRN ×3 (05:17→21:56)
[2021-02-03] MEDS: NICOTINE 10 MG CARTRIDGE (INHALER) IH PRN ×3 (05:23→21:56)
[2021-02-03] MEDS ORDERED: diazePAM 5 MG TABLET PO ONE (06:00)
[2021-02-03] MEDS: IBUPROFEN 400 MG TABLET (FP) PO PRN (06:59)
[2021-02-03] MEDS ORDERED: methaDONE HCL 10 MG TABLET (FOR DETOX USE ONLY) PO ONE (10:00)
[2021-02-03] MEDS: METOPROLOL TARTRATE 25 MG TABLET (FP) PO SCH (11:15)
[2021-02-03] MEDS: PRENATAL VITAMINS W/ FOLIC ACID TABLET (FP) PO SCH (11:15)
[2021-02-03] MEDS: amLODIPine BESYLATE 5 MG TABLET (FP) PO SCH (11:15)
[2021-02-03] MEDS: THIAMINE HCL 100 MG TABLET (FP) PO SCH (21:56)
[2021-02-03] MEDS: MELATONIN 5 MG TABLETS PO SCH (21:56)
[2021-02-04] MEDS: METHOCARBAMOL 500 MG TABLET PO PRN (06:26)
[2021-02-04 09:41] VITALS: BP 120/62; PULSE 99; TEMP 98
== END 2021-02-04 11:08 | disposition home or self-care (01) | DRG 773 ==
LOC: YASAS 17:03 → Y6N 22:01
PROVIDERS: ADMIT Allergy & Immunology; ATTEND Allergy & Immunology
PROC: HZ2ZZZZ Detoxification Services for Substance Abuse Treatment (ICD-10-PCS; principal; 2021-01-30)
DX: F11.23 Opioid dependence with withdrawal (principal); F10.230 Alcohol dependence with withdrawal, uncomplicated; F14.20 Cocaine dependence, uncomplicated; F12.20 Cannabis dependence, uncomplicated; F17.210 Nicotine dependence, cigarettes, uncomplicated; F20.9 Schizophrenia, unspecified; F19.282 Other psychoactive substance dependence with psychoactive substance-induced sleep disorder; F19.24 Other psychoactive substance dependence with psychoactive substance-induced mood disorder; F41.8 Other specified anxiety disorders; F32.A Depression, unspecified; I10 Essential (primary) hypertension; M54.50 Low back pain, unspecified; G89.29 Other chronic pain; Z20.822 Contact with and (suspected) exposure to COVID-19; Z88.7 Allergy status to serum and vaccine
CPT/HCPCS: 93005; 93010; C9803; J0735; U0003; U0005